=== PATIENT | female | born 1945 | race African-American/Black ===

== ENCOUNTER 2017-12-24 17:41 | Emergency (ER) | payer MEDICARE ==
[~2017-12-24] VITALS: Ht 160 cm; Wt 89.0 kg
[~2017-12-24 17:41] MED LIST: AMLO10TA4 PO; ASPI-1159 PO; METO-539 PO
[2017-12-24] MEDS ORDERED: IBUPROFEN 400MG TABLET PO ONE (22:15)
[2017-12-24 23:22] VITALS: BP 128/71
== END 2017-12-24 23:23 | disposition home or self-care (01) ==
LOC: ER 18:25
DX: S43.401A Unspecified sprain of right shoulder joint, initial encounter (principal); I10 Essential (primary) hypertension; Z79.82 Long term (current) use of aspirin; V43.52XA Car driver injured in collision with other type car in traffic accident, initial encounter; Y93.89 Activity, other specified; Y92.89 Other specified places as the place of occurrence of the external cause; Y99.8 Other external cause status
CPT/HCPCS: 71045; 73030; 81025; 99284; A4565

== ENCOUNTER → 2022-02-25 | Day surgery (SDC) | payer MEDICARE ==
[~2022-02-25] VITALS: Ht 160 cm; Wt 92.5 kg
[~2022-02-25] MED LIST changes: -ASPI-1159 PO; +ASPI-1497 PO; +BUPIVACAINE HCL/PF 0.5% (5MG/ML) 10ML ONE; +CEFAZOLIN SODIUM 1000MG/VIAL ONE; +DEXAMETHASONE 4MG/ML 1ML VIAL ONE; +GLYCOPYRROLATE 0.2 MG/ML 2ML VIAL ONE; +HYDROMORPHONE HCL/PF 2MG/ML CPJ IV PRN; +LABETALOL 5MG/ML SYR 20 MG/4 ML SYRINGE IV PRN; +LACTATED RINGERS 1,000 ML IV SCH; +MELO-106 MT; +MEPERIDINE HCL/PF 25MG/ML CPJ IV PRN; +ONDANSETRON HCL 4MG/2ML INJ IV PRN; +ONDANSETRON HCL 4MG/2ML INJ ONE; +SKIN ADHESIVE 0.7 GM EA TOP ONE; +TRIA1TAB92 PO
== END | disposition home or self-care (01) ==
LOC: OR 05:29
PROVIDERS: ATTEND Surgery
DX: N63.20 Unspecified lump in the left breast, unspecified quadrant (principal); L72.3 Sebaceous cyst; R92.8 Other abnormal and inconclusive findings on diagnostic imaging of breast; Z79.899 Other long term (current) drug therapy; Z98.890 Other specified postprocedural states; Z20.822 Contact with and (suspected) exposure to COVID-19
CPT/HCPCS: 19120; 87426; 88304; C9803; J0690; J1100; J2405; J3490